=== PATIENT | female | born 1990 | race Caucasian/White ===

== ENCOUNTER 2023-02-08 19:24 | Outpatient (CLI) | payer OTHER, SELFPAY ==
--- NOTE | 2023-02-16 08:29 | P.SLS_ITS ---
Sleep Study Details Details Interpreting Provider: Immanuel Date of Sleep Study: 02/08/23 Sleep Study Details: STUDY TYPE:? Home ? BMI:? 34.3 ORDERING PROVIDER:Fabricio Gambino INDICATION:? Concerns about sleep apnea ? SLEEP SUMMARY:? 495.4 minutes monitored RESPIRATORY SUMMARY:? AHI 0.8, low oxygen 92, snoring 1.4% PERIODIC LIMB MOVEMENTS OF SLEEP:? Not recorded CARDIAC:? Range 58-111, mean 79.9 beats per minute IMPRESSION:? This study does not demonstrate significant obstructive sleep apnea. If sleep disorder is strongly suspected then an in-lab study is r ecommended. RECOMMENDATION: See above impression.
== END 2023-02-08 19:25 | disposition home or self-care (01) ==
LOC: SLEEP 19:25
PROVIDERS: Visit Provider Otolaryngology
DX: G47.19 Other hypersomnia (principal)
CPT/HCPCS: 95806